=== PATIENT | female | born 1975 | race Two or more races ===

== ENCOUNTER 2017-04-30 18:14 | Emergency (ER) | payer OTHER ==
[2017-04-30 18:20] VITALS: BP 157/84; PULSE 70; TEMP 98; BMI 24.6
--- NOTE | 2017-04-30 20:43 | PDOC ---
History of Present Illness <Kerline Santoro - Last Filed: 04/30/17 22:15> - General History Source: Patient Exam Limitations: No Limitations - History of Present Illness Initial Comments: 04/30/17 22:28 The patient is a 42-year-old female, with a significant past medical history of hematuria, who presents to the ED with suprapubic pressure today. The patient had a procedure done by Dr. Hernandez and had a catheter placed. Upon examination , patient showed us a small sponge with a metal piece on top that she had passed. Patient reports dysuria. The patient denies having other symptoms. <Joellen Banks - Last Filed: 04/30/17 22:32> - General Chief Complaint: Pain Stated Complaint: PAIN Time Seen by Provider: 04/30/17 19:50 Past History - Psycho/Social/Smoking Cessation Hx Suicidal Ideation: No Smoking History: Current every day smoker Number of Cigarettes Smoked Daily: 2 Information on smoking cessation initiated: No <Kerline Santoro - Last Filed: 04/30/17 22:15> <Joellen Banks - Last Filed: 04/30/17 22:32> - Past Medical History Allergies/Adverse Reactions: Allergies Allergy/AdvReac Type Severity Reaction Status Date / Time Penicillins Allergy Verified 04/30/17 18:21 Home Medications: Ambulatory Orders Ciprofloxacin HCl [Cipro] 500 mg PO BID 04/30/17 Meloxicam [Mobic] 15 mg PO DAILY 04/30/17 Review of Systems - Review of Systems Able to Perform ROS?: Yes Comments:: 04/30/17 22:28 CONSTITUTIONAL: Absent: fever, no chills, no fatigue EYES: Absent: visual changes ENT: Absent: ear pain, no sore throat CARDIOVASCULAR: Absent: chest pain, no palpitations RESPIRATORY: Absent: cough, no SOB GI: Present: suprapubiv pain Absent: no nausea, no vomiting, no constipation, no diarrhea GENITOURINARY: Present: dysuria Absent: no frequency, no hematuria MUSKULOSKELETAL: Absent: back pain, no arthralgia, no myalgia SKIN: Absent: rash NEURO: Absent: headache <Joellen Banks - Last Filed: 04/30/17 22:32> *Physical Exam - Vital Signs Last Vital Signs Temp Pulse Resp BP Pulse Ox 98 F 70 18 157/84 98 06/26/17 18:17 04/30/17 18:17 04/30/17 18:17 04/30/17 18:17 04/30/17 18:17 <Kerline Santoro - Last Filed: 04/30/17 22:15> - Vital Signs Last Vital Signs Temp Pulse Resp BP Pulse Ox 98 F 70 18 157/84 98 04/30/17 18:17 04/30/17 18:17 04/30/17 18:17 04/30/17 18:17 04/30/17 18:17 - Physical Exam Comments: 04/30/17 22:31 Well developed, well nourished. Awake and alert. No acute distress. HEENT: Normocephalic, atraumatic. PERRLA, EOMI. No conjunctival pallor. Sclera are non- icteric. Moist mucous membranes. Oropharynx is clear. NECK: Supple. Full ROM. No JVD. Carotid pulses 2+ and symmetric, without bruits. No thyromegaly. No lymphadenopathy. CARDIOVASCULAR: Regular rate and rhythm. No murmurs, rubs, or gallops. Distal pulses are 2+ and symmetric. PULMONARY: No evidence of respiratory distress. Lungs clear to auscultation bilaterally. No wheezing, rales or rhonchi. ABDOMINAL: Soft. Non-tender. Non-distended. No rebound or guarding. No organomegaly. Normoactive bowel sounds. MUSCULOSKELETAL Normal range of motion at all joints. No bony deformities or tenderness. No CVA tenderness. EXTREMITIES: No cyanosis. No clubbing. No edema. No calf tenderness. SKIN: Warm and dry. Normal capillary refill. No rashes. No jaundice. NEUROLOGICAL: Alert, awake, appropriate. PSYCHIATRIC: Cooperative. Good eye contact. Appropriate mood and affect. <Joellen Banks - Last Filed: 04/30/17 22:32> Medical Decision Making - Medical Decision Making 04/30/17 21:44 42-year-old female with a history of hematuria had a procedure done today by Dr. Hernandez and had increased suprapubic pressure pressure and came in. She also he showed us a metal snap like on a small sponge that she said she passed. She is already has Cipro and has the antibiotics in the bottle with her I described the snap like metal object that she says she passed an Dr. Hernandez said he didn't recognize what we were talking about. The plan is for follow-up in his office at noon tomorrow <Kerline Santoro - Last Filed: 04/30/17 22:15> - Medical Decision Making 04/30/17 20:51 Dr. Hernandez was paged and notified via phone service. Second page was placed at 21:26. <Joellen Banks - Last Filed: 04/30/17 22:32> *DC/Admit/Observation/Transfer <Kerline Santoro - Last Filed: 04/30/17 22:15> - Attestations Scribe Attestion: 04/30/17 22:32 Documentation prepared by Joellen Banks, acting as faculty i on call medical assistant for Kerline Santoro MD. <Joellen Banks - Last Filed: 04/30/17 22:32> Diagnosis at time of Disposition: Hematuria, Suprapubic discomfort - Discharge Dispostion Disposition: HOME Condition at time of disposition: Stable - Referrals Referrals: Oumou Michel [Primary Care Provider] - Cliff Hernandez MD [Staff Physician] - - Patient Instructions Printed Discharge Instructions: DI for Postoperative Pain Additional Instructions: PLEASE SEE DR VIOLETA MONTANO AT NOON TOMORROW IN HIS OFFICE TAKE YOUR CIPROFLOXACIN
== END 2017-04-30 22:32 | disposition home or self-care (01) ==
LOC: JER 18:14
DX: G89.18 Other acute postprocedural pain (principal)
CPT/HCPCS: 74000-TC; 99283-25

== ENCOUNTER 2017-05-01 13:10 | Emergency (ER) | payer OTHER ==
[2017-05-01 13:18] VITALS: BP 148/77; PULSE 75; TEMP 98.3; BMI 24.6
--- NOTE | 2017-05-01 13:49 | PDOC ---
History of Present Illness - General History Source: Patient Exam Limitations: No Limitations - History of Present Illness Initial Comments: CHIEF COMPLAINT: 42 y/o afebrile female with no significant PMH c/o lower abdominal pain. HISTORY OF PRESENT ILLNESS: The patient states she had a cystometrogram yesterday morning performed by Dr. Hernandez. Afterwards she came to the ER c/o of lower abdominal pain after she passed an EKG lead out of her vagina. She had an xray done which showed no other metal objects and discharged her home. She states today she had a bowel movement and another one came out. She saw Dr. Hernandez this morning who she states didn't do anything for her. She states her lower abdominal pain is better since yesterday but she is still sore. She is here because she wants to make sure there are no more EKG leads in her. Vital signs on arrival are within normal limits. REVIEW OF SYSTEMS: GENERAL/CONSTITUTIONAL: No fever/chills. No weakness. No weight change. HEAD, EYES, EARS, NOSE AND THROAT: No change in vision. No ear pain or discharge. No sore throat. CARDIOVASCULAR: No chest pain or shortness of breath. RESPIRATORY: No cough, wheezing, or hemoptysis. GASTROINTESTINAL: +lower abdominal discomfort. +foreign body in stool. GENITOURINARY: No dysuria, frequency, or change in urination. MUSCULOSKELETAL: No joint or muscle swelling or pain. No neck or back pain. SKIN: No rash or easy bruising. NEUROLOGIC: No headache, vertigo, loss of consciousness, or loss of sensation. PHYSICAL EXAM: GENERAL: The patient is awake, alert, and fully oriented, in no acute distress. HEAD: Normal with no signs of trauma. ENT: Pupils equal, round and reactive to light, extraocular movements intact, sclera anicteric, conjunctiva clear. Neck supple. LUNGS: Clear to auscultation bilaterally. Normal excursion. No respiratory distress or use of accessory muscles. CV: RRR, S1/S2, no MRG. Cap refill < 2 sec. ABDOMEN: Soft, non-distended, mildly TTP of suprapubic region. No rebound, guarding or rigidity. RECTUM: REFUSED VAGINAL: Speculum exam revealed minimal brownish/dark red blood in the vault. IUD string in place and visualized. No foreign body noted on the vaginal alvarado or coming from the Os. EXTREMITIES: Normal range of motion, no edema. NEUROLOGICAL: Normal speech, normal gait. CN II-XII grossly intact. PSYCH: Normal mood, normal affect. SKIN: Warm, dry, normal turgor, no rashes or lesions noted. <Danae Oakley - Last Filed: 05/01/17 15:17> <Mellisa Smith - Last Filed: 05/04/17 08:49> - General Chief Complaint: Pain, Acute Stated Complaint: REEVALUATION Time Seen by Provider: 05/01/17 13:34 Past History - Past Medical History Other medical history: NONE - Reproductive History (#): 3 Para: 3 - Psycho/Social/Smoking Cessation Hx Anxiety: No Suicidal Ideation: No Smoking History: Current every day smoker Have you smoked in the past 12 months: Yes Number of Cigarettes Smoked Daily: 2 Information on smoking cessation initiated: Yes 'Breaking Loose' booklet given: 05/01/17 Hx Alcohol Use: No Drug/Substance Use Hx: No <Danae Oakley - Last Filed: 05/01/17 15:17> <Mellisa Smith - Last Filed: 05/04/17 08:49> - Past Medical History Allergies/Adverse Reactions: Allergies Allergy/AdvReac Type Severity Reaction Status Date / Time Penicillins Allergy Verified 05/01/17 13:11 Home Medications: Ambulatory Orders Ciprofloxacin HCl [Cipro] 500 mg PO BID 04/30/17 Meloxicam [Mobic] 15 mg PO DAILY 04/30/17 *Physical Exam - Vital Signs Last Vital Signs Temp Pulse Resp BP Pulse Ox 98.3 F 75 18 148/77 100 05/01/17 13:13 05/01/17 13:13 05/01/17 13:13 05/01/17 13:13 05/01/17 13:13 <Danae Oakley - Last Filed: 05/01/17 15:17> - Vital Signs Last Vital Signs Temp Pulse Resp BP Pulse Ox 98.3 F 75 18 148/77 100 05/01/17 13:13 05/01/17 13:13 05/01/17 13:13 05/01/17 13:13 05/01/17 13:13 <Mellisa Smith - Last Filed: 05/04/17 08:49> Medical Decision Making - Medical Decision Making A/P: 42 y/o afebrile female here to confirm no more foreign bodies in her vagina or rectum after an EKG lead came out of her vagina and rectum over the past 2 days. Vaginal exam negative for foreign body. The patient refused rectal exam. Explained to the patient that the EKG leads, if there are more, should not cause anything more than mild discomfort should she pass them in a bowel movement of through her vagina. She is currently taking Cipro to prevent infection after her bladder scan and has 6 more days to take. I strongly encouraged her to take until completed, drink plenty of fluids and take Motrin for pain with food if needed. The patient was instructed to return to the ER with any worsening or concerning symptoms. The patient verbalizes understanding of all instructions, has no further questions and is awaiting discharge. <Danae Oakley - Last Filed: 05/01/17 15:17> *DC/Admit/Observation/Transfer <Danae Oakley - Last Filed: 05/01/17 15:17> - Attestations Physician Attestion: I reviewed the case with the mid-level practitioner and agree with the mid- level practitioner's assessment, diagnosis and disposition. <Mellisa Smith - Last Filed: 05/04/17 08:49> Diagnosis at time of Disposition: Foreign body anus/rectum Qualifiers: Encounter type: initial encounter Qualified Code(s): T18.5XXA - Foreign body in anus and rectum, initial encounter Foreign body in vagina Qualifiers: Encounter type: initial encounter Qualified Code(s): T19.2XXA - Foreign body in vulva and vagina, initial encounter - Discharge Dispostion Disposition: HOME Condition at time of disposition: Good - Referrals Referrals: Oumou Michel [Primary Care Provider] - Call tomorrow - Patient Instructions Printed Discharge Instructions: DI for Foreign Body in Vagina-Adult, DI for Removal of Foreign Body From Rectum Additional Instructions: Discharge Instructions: -Please continue taking the antibiotics you were prescribed and complete entire 7 days -Drink at least 64oz of water daily -Return to the ER with any worsening or concerning symptoms Instrucciones de leigh ann: -Por favor contine tomando los antibiticos que le recetaron y complete los 7 d as completos - Vicki por lo menos 64oz de agua al da -Vuelva a la [facility]ayan de emergencias con cualquier empeoramiento o con respecto a los sntomas Print Language: ENGLISH
== END 2017-05-01 15:30 | disposition home or self-care (01) ==
LOC: JER 13:10
DX: T19.8XXA Foreign body in other parts of genitourinary tract, initial encounter (principal); T18.5XXA Foreign body in anus and rectum, initial encounter; Z03.89 Encounter for observation for other suspected diseases and conditions ruled out
CPT/HCPCS: 99281-25

== ENCOUNTER 2022-10-18 09:25 | Emergency (ER) | payer OTHER ==
[2022-10-18 09:31] VITALS: BP 129/88; PULSE 71; RESP 18; TEMP 98.2; BMI 23.4
[2022-10-18] MEDS ORDERED: diazePAM 5 MG TABLET PO ONE (10:33)
[2022-10-18] MEDS ORDERED: ACETAMINOPHEN 500 MG TABLET (FP) PO ONE (10:33)
[2022-10-18] MEDS ORDERED: LIDOCAINE 5% TOPICAL PATCH TP ONE (10:33)
[2022-10-18] MEDS ORDERED: KETOROLAC TROMETHAMINE 30 MG/1 ML VIAL IM ONE (10:33)
[2022-10-18] MEDS ORDERED: KETOROLAC TROMETHAMINE 30 MG/1 ML VIAL ONE ×2 (10:35→10:36)
[2022-10-18] MEDS ORDERED: ACETAMINOPHEN 325 MG TABLET (FP) ONE (10:35)
[2022-10-18] MEDS ORDERED: diazePAM 5 MG TABLET ONE (10:35)
[2022-10-18] MEDS ORDERED: LIDOCAINE 5% TOPICAL PATCH ONE (10:35)
[2022-10-18 11:45] LABS: HCG,QUALITATIVE URINE Negative
[2022-10-18 11:47] LABS: EPI CELLS 9 /uL (0-25.1); HYALINE CASTS 0 /uL (0-3.1); PH,URINE 6.5 (5.0-8.0); URINE APPEARANCE CLEAR; URINE BACTERIA 239 /uL (0-1359); URINE BILIRUBIN NEGATIVE (NEGATIVE); URINE COLOR YELLOW; URINE GLUCOSE (UA) NEGATIVE (NEGATIVE); URINE KETONE NEGATIVE (NEGATIVE); URINE LEUK ESTERASE 1+ (NEGATIVE); URINE NITRITE NEGATIVE (NEGATIVE); URINE PROTEIN NEGATIVE (NEGATIVE); URINE RBC 3 /uL (0-23.9); URINE UROBILINOGEN 0.2 mg/dL (0.2-1.0); URINE WBC 25 /uL (0-25.8)
[2022-10-18] MEDS ORDERED: LIDOCAINE PATCH REMOVAL MC ONE (22:00)
== END 2022-10-18 12:33 | disposition home or self-care (01) ==
LOC: JERFT 09:25 → JER 09:25 → JERFT 12:33
PROC: 3E0233Z Introduction of Anti-inflammatory into Muscle, Percutaneous Approach (ICD-10-PCS; principal; 2022-10-18)
DX: S39.012A Strain of muscle, fascia and tendon of lower back, initial encounter (principal); X50.1XXA Overexertion from prolonged static or awkward postures, initial encounter
CPT/HCPCS: 81003; 84703; 87086; 99284-25

== ENCOUNTER 2023-08-21 05:24 | Day surgery (SDC) | payer OTHER ==
[2023-08-20 17:18] VITALS: BMI 24.7
[2023-08-21] MEDS ORDERED: LIDOCAINE HCL/PF 1% SDV 5ML VIAL ONE (10:16)
[2023-08-21] MEDS ORDERED: BUPIVACAINE HCL/PF 0.75% 10 ML VIAL ONE (10:16)
[2023-08-21] MEDS ORDERED: ACETAMINOPHEN 500 MG TABLET (FP) PO PRN (14:54)
[2023-08-21] MEDS ORDERED: LIDOCAINE HCL/PF 2% SDV 5ML VIAL ONE (15:51)
[2023-08-21] MEDS ORDERED: LIDOCAINE HCL 1% PRESERVATIVE FREE - 30ML VIAL IJ ONE (16:49)
[2023-08-21] MEDS ORDERED: BUPIVACAINE HCL/PF 0.75% 10 ML VIAL NR ONE (16:50)
[2023-08-21 18:19] VITALS: BP 128/77; PULSE 62; RESP 18; TEMP 98.5
== END 2023-08-21 18:15 | disposition home or self-care (01) ==
LOC: JASU-SURG 05:24
PROVIDERS: ATTEND Pain Medicine Pain Medicine
PROC: 3E0T33Z Introduction of Anti-inflammatory into Peripheral Nerves and Plexi, Percutaneous Approach (ICD-10-PCS; 2023-08-21)
PROC: 3E0T3BZ Introduction of Anesthetic Agent into Peripheral Nerves and Plexi, Percutaneous Approach (ICD-10-PCS; principal; 2023-08-21 15:00)
DX: M47.816 Spondylosis without myelopathy or radiculopathy, lumbar region (principal)
CPT/HCPCS: 76000-TC-FY; 81025

== ENCOUNTER 2023-08-30 14:43 | Emergency (ER) | payer OTHER ==
[2023-08-30 14:51] VITALS: BP 153/87; PULSE 89; RESP 20; TEMP 98; BMI 25.7
[2023-08-30] MEDS ORDERED: ACETAMINOPHEN 500 MG TABLET (FP) PO ONE (15:46)
[2023-08-30] MEDS ORDERED: ACETAMINOPHEN 500 MG TABLET (FP) ONE (15:50)
== END 2023-08-30 16:41 | disposition home or self-care (01) ==
LOC: JERFT 14:43
DX: M79.602 Pain in left arm (principal); S40.012A Contusion of left shoulder, initial encounter; M25.512 Pain in left shoulder; Y04.8XXA Assault by other bodily force, initial encounter
CPT/HCPCS: 73030-TC-LT-FY; 73090-TC-LT-FY; 99283-25

== ENCOUNTER 2023-09-18 04:45 | Day surgery (SDC) | payer OTHER ==
[2023-09-14 18:19] VITALS: BMI 25.5
[2023-09-18] MEDS ORDERED: LIDOCAINE HCL/PF 1% SDV 5ML VIAL ONE ×2 (07:37→07:38)
[2023-09-18] MEDS ORDERED: BUPIVACAINE HCL/PF 0.75% 10 ML VIAL ONE (07:37)
[2023-09-18] MEDS ORDERED: LIDOCAINE HCL 1% PRESERVATIVE FREE - 30ML VIAL IJ ONE ×2 (10:36→10:40)
[2023-09-18] MEDS ORDERED: BUPIVACAINE HCL/PF 0.75% 10 ML VIAL NR ONE ×2 (10:37→10:41)
[2023-09-18 11:22] VITALS: BP 126/77; PULSE 61; RESP 18; TEMP 99.5
[2023-09-18] MEDS ORDERED: ACETAMINOPHEN 325 MG TABLET (FP) ONE (11:45)
[2023-09-18] MEDS ORDERED: ACETAMINOPHEN 500 MG TABLET (FP) PO PRN (14:09)
== END 2023-09-18 12:05 | disposition home or self-care (01) ==
LOC: JASU-SURG 04:45
PROVIDERS: ATTEND Pain Medicine Pain Medicine
PROC: 3E0T33Z Introduction of Anti-inflammatory into Peripheral Nerves and Plexi, Percutaneous Approach (ICD-10-PCS; 2023-09-18)
PROC: 3E0T3BZ Introduction of Anesthetic Agent into Peripheral Nerves and Plexi, Percutaneous Approach (ICD-10-PCS; principal; 2023-09-18 11:15)
DX: M47.816 Spondylosis without myelopathy or radiculopathy, lumbar region (principal)
CPT/HCPCS: 76000-TC-FY; 81025

== ENCOUNTER 2023-11-09 04:12 | Day surgery (SDC) | payer OTHER ==
[2023-11-06 10:51] VITALS: BMI 25.0
[~2023-11-09 04:12] MED LIST: BUPIVACAINE HCL/PF 0.75% 10 ML VIAL NR ONE; DEXAMETHASONE SOD PHOSPHATE 10 MG/1 ML VIAL IVPUSH ONE; LIDOCAINE 1% P/F 10 MG/ML VIAL INF ONE; LIDOCAINE HCL/PF 2% SDV 5ML VIAL INF ONE
[2023-11-09] MEDS ORDERED: BUPIVACAINE HCL/PF 0.75% 10 ML VIAL ONE (07:21)
[2023-11-09] MEDS ORDERED: DEXAMETHASONE SOD PHOSPHATE 10 MG/1 ML VIAL ONE (07:21)
[2023-11-09] MEDS ORDERED: LIDOCAINE HCL/PF 1% SDV 5ML VIAL ONE (07:21)
[2023-11-09 09:12] VITALS: RESP 18
[2023-11-09] MEDS ORDERED: LIDOCAINE 1% P/F 10 MG/ML VIAL INF ONE (11:13)
[2023-11-09] MEDS ORDERED: LIDOCAINE HCL/PF 2% SDV 5ML VIAL INF ONE (11:19)
[2023-11-09] MEDS ORDERED: ACETAMINOPHEN 500 MG TABLET (FP) PO PRN (11:21)
[2023-11-09] MEDS ORDERED: BUPIVACAINE HCL/PF 0.75% 10 ML VIAL NR ONE (11:29)
[2023-11-09] MEDS ORDERED: DEXAMETHASONE SOD PHOSPHATE 10 MG/1 ML VIAL IVPUSH ONE (11:29)
[2023-11-09] MEDS ORDERED: ACETAMINOPHEN 500 MG TABLET (FP) ONE (12:12)
[2023-11-09 12:23] VITALS: BP 117/78; PULSE 65; TEMP 98.6
== END 2023-11-09 12:44 | disposition home or self-care (01) ==
LOC: JASU-SURG 04:12
PROVIDERS: ATTEND Pain Medicine Pain Medicine
PROC: 015B3ZZ Destruction of Lumbar Nerve, Percutaneous Approach (ICD-10-PCS; principal; 2023-11-09 11:00)
DX: M47.816 Spondylosis without myelopathy or radiculopathy, lumbar region (principal)
CPT/HCPCS: 76000-TC-FY; 81025; J1100

== ENCOUNTER 2024-01-11 04:23 | Day surgery (SDC) | payer OTHER ==
[2024-01-07 08:42] VITALS: BMI 25.0
[2024-01-11] MEDS ORDERED: LIDOCAINE HCL/PF 2% SDV 5ML VIAL ONE (07:23)
[2024-01-11] MEDS ORDERED: BUPIVACAINE HCL/PF 0.75% 10 ML VIAL ONE (07:23)
[2024-01-11] MEDS ORDERED: LIDOCAINE HCL/PF 1% SDV 5ML VIAL ONE (07:23)
[2024-01-11] MEDS ORDERED: DEXAMETHASONE SOD PHOSPHATE 10 MG/1 ML VIAL ONE (07:24)
[2024-01-11 10:47] VITALS: RESP 20
[2024-01-11] MEDS: LIDOCAINE 1% P/F 10 MG/ML VIAL INF ONE ×2 (11:25)
[2024-01-11] MEDS: BUPIVACAINE HCL/PF 0.75% 10 ML VIAL CAUD ONE ×2 (11:25)
[2024-01-11] MEDS: DEXAMETHASONE SOD PHOSPHATE 10 MG/1 ML VIAL IVPUSH ONE ×2 (11:26)
[2024-01-11] MEDS: LIDOCAINE HCL/PF 2% SDV 5ML VIAL INF ONE ×2 (11:26)
[2024-01-11] MEDS ORDERED: ACETAMINOPHEN 500 MG TABLET (FP) ONE (11:57)
[2024-01-11 12:19] VITALS: BP 139/78; PULSE 55; TEMP 97.8
[2024-01-11] MEDS: ACETAMINOPHEN 500 MG TABLET (FP) PO ONE (12:24)
== END 2024-01-11 13:19 | disposition home or self-care (01) ==
LOC: JASU-SURG 04:23
PROVIDERS: ATTEND Pain Medicine Pain Medicine
PROC: 015B3ZZ Destruction of Lumbar Nerve, Percutaneous Approach (ICD-10-PCS; principal; 2024-01-11 11:45)
DX: M47.816 Spondylosis without myelopathy or radiculopathy, lumbar region (principal)
CPT/HCPCS: 76000-TC-FY; 81025; J1100

== ENCOUNTER 2024-04-11 04:14 | Day surgery (SDC) | payer OTHER ==
[2024-03-24 08:29] VITALS: BMI 24.9
[~2024-04-11 04:14] MED LIST changes: +ACETAMINOPHEN 500 MG TABLET (FP) PO PRN; -BUPIVACAINE HCL/PF 0.75% 10 ML VIAL NR ONE; -DEXAMETHASONE SOD PHOSPHATE 10 MG/1 ML VIAL IVPUSH ONE; -LIDOCAINE 1% P/F 10 MG/ML VIAL INF ONE; -LIDOCAINE HCL/PF 2% SDV 5ML VIAL INF ONE
[2024-04-11] MEDS ORDERED: LIDOCAINE HCL/PF 1% SDV 5ML VIAL ONE (07:26)
[2024-04-11] MEDS ORDERED: DEXAMETHASONE SOD PHOSPHATE 10 MG/1 ML VIAL ONE (07:26)
[2024-04-11 10:47] VITALS: BP 122/80; PULSE 63; RESP 20; TEMP 98.7
[2024-04-11] MEDS ORDERED: ACETAMINOPHEN 500 MG TABLET (FP) PO PRN (15:04)
== END 2024-04-11 11:19 | disposition home or self-care (01) ==
LOC: JASU-SURG 04:14
PROVIDERS: ATTEND Pain Medicine Pain Medicine
DX: Z53.8 Procedure and treatment not carried out for other reasons (principal)
CPT/HCPCS: J1100

== ENCOUNTER 2024-04-18 04:23 | Day surgery (SDC) | payer OTHER ==
[2024-04-15 13:11] VITALS: BMI 24.9
[2024-04-18] MEDS ORDERED: LIDOCAINE HCL/PF 1% SDV 5ML VIAL ONE (07:21)
[2024-04-18] MEDS ORDERED: DEXAMETHASONE SOD PHOSPHATE 10 MG/1 ML VIAL ONE (07:22)
[2024-04-18] MEDS: LIDOCAINE 1% P/F 10 MG/ML VIAL INF ONE (10:44)
[2024-04-18] MEDS: IOHEXOL 180 MG/1 ML ML IJ ONE ×2 (10:44→10:52)
[2024-04-18] MEDS: DEXAMETHASONE SOD PHOSPHATE 10 MG/1 ML VIAL IVPUSH ONE (10:53)
[2024-04-18] MEDS ORDERED: ACETAMINOPHEN 500 MG TABLET (FP) ONE (11:03)
[2024-04-18] MEDS: ACETAMINOPHEN 500 MG TABLET (FP) PO PRN (11:10)
[2024-04-18 12:32] VITALS: BP 140/83; PULSE 57; RESP 19; TEMP 98.3
== END 2024-04-18 12:32 | disposition home or self-care (01) ==
LOC: JASU-SURG 04:23
PROVIDERS: ATTEND Pain Medicine Pain Medicine
PROC: 3E0R3BZ Introduction of Anesthetic Agent into Spinal Canal, Percutaneous Approach (ICD-10-PCS; 2024-04-18)
PROC: 3E0R33Z Introduction of Anti-inflammatory into Spinal Canal, Percutaneous Approach (ICD-10-PCS; principal; 2024-04-18 10:00)
DX: M54.16 Radiculopathy, lumbar region (principal)
CPT/HCPCS: 76000-TC-FY; 81025; J1100

== ENCOUNTER 2024-06-06 04:53 | Day surgery (SDC) | payer OTHER ==
[2024-05-19 18:01] VITALS: BMI 24.1
[2024-06-06] MEDS ORDERED: DEXAMETHASONE SOD PHOSPHATE 10 MG/1 ML VIAL ONE (12:57)
[2024-06-06] MEDS ORDERED: LIDOCAINE HCL/PF 1% SDV 5ML VIAL ONE (12:57)
[2024-06-06] MEDS: IOHEXOL 180 MG/1 ML ML IJ ONE (13:35)
[2024-06-06] MEDS: BUPIVACAINE HCL/PF 0.5% (5MG/ML) 10 ML VIAL PNB ONE (13:35)
[2024-06-06] MEDS: LIDOCAINE 1% P/F 10 MG/ML VIAL PNB ONE (13:35)
[2024-06-06] MEDS: TRIAMCINOLONE ACET 40MG/1ML VIAL IM ONE (13:37)
[2024-06-06 13:56] VITALS: BP 149/76; PULSE 50; RESP 16; TEMP 97.5
== END 2024-06-06 14:30 | disposition home or self-care (01) ==
LOC: JASU-SURG 04:53
PROVIDERS: ATTEND Pain Medicine Pain Medicine
PROC: 3E0U3GC Introduction of Other Therapeutic Substance into Joints, Percutaneous Approach (ICD-10-PCS; principal; 2024-06-06 12:30)
DX: M53.3 Sacrococcygeal disorders, not elsewhere classified (principal)
CPT/HCPCS: 76000-TC-FY; J1100

== ENCOUNTER 2024-07-24 04:34 | Day surgery (SDC) | payer OTHER ==
[2024-07-24] MEDS ORDERED: BUPIVACAINE HCL/PF 0.5% (5MG/ML) 10 ML VIAL ONE (07:19)
[2024-07-24] MEDS ORDERED: LIDOCAINE HCL/PF 1% SDV 5ML VIAL ONE (07:20)
[2024-07-24] MEDS ORDERED: BUPIVACAINE HCL/PF 0.75% 10 ML VIAL ONE (07:20)
[2024-07-24 14:05] VITALS: BMI 26.4
[2024-07-24] MEDS: BUPIVACAINE HCL/PF 0.5% (5 MG/ML) 30 ML VIAL IJ ONE (18:22)
[2024-07-24] MEDS ORDERED: ACETAMINOPHEN 500 MG TABLET (FP) ONE (18:39)
[2024-07-24] MEDS: ACETAMINOPHEN 500 MG TABLET (FP) PO PRN (18:40)
[2024-07-24 19:57] VITALS: BP 126/78; PULSE 58; RESP 18; TEMP 98
== END 2024-07-24 19:20 | disposition home or self-care (01) ==
LOC: JASU-SURG 04:34
PROVIDERS: ATTEND Pain Medicine Pain Medicine
PROC: 3E0T3BZ Introduction of Anesthetic Agent into Peripheral Nerves and Plexi, Percutaneous Approach (ICD-10-PCS; principal; 2024-07-24 15:30)
DX: M47.812 Spondylosis without myelopathy or radiculopathy, cervical region (principal)
CPT/HCPCS: 76000-TC-FY